=== PATIENT | male | born 1950 | race Caucasian/White ===

== ENCOUNTER 2016-07-29 22:50 | Emergency (ER) | payer BC, MEDICARE ==
[~2016-07-29] VITALS: Ht 182.9 cm; Wt 88.0 kg
[2016-07-29] MEDS ORDERED: LOSARTAN POT100 MG PO (23:18)
[2016-07-29] MEDS ORDERED: AUGMENTIN875TAB PO (23:52)
[2016-07-30] MEDS ORDERED: ULTRAM50 M1 PO (00:14)
[2016-07-30 00:48] VITALS: BP 130/84
== END 2016-07-30 00:49 | disposition home or self-care (01) | DRG 605 ==
LOC: ED 22:50
DX: S81.851A Open bite, right lower leg, initial encounter (principal); W55.41XA Bitten by pig, initial encounter; Y93.79 Activity, other specified sports and athletics; Y92.828 Other wilderness area as the place of occurrence of the external cause